=== PATIENT | female | born 1960 | race Caucasian/White ===

== ENCOUNTER 2020-01-06 08:16 | Emergency (ER) | payer OTHER, SELFPAY ==
[2020-01-06 08:22] VITALS: BP 128/59; PULSE 81; RESP 18; TEMP 37; O2SAT 98
--- NOTE | 2020-01-06 08:37 | ED.URI ---
HPI - URI/Sore Throat General Chief Complaint: Upper Respiratory Infection Stated Complaint: nausea chills sore throat Time Seen by Provider: 01/06/20 08:37 Source: patient History of Present Illness HPI Narrative: Patient presents with with bilateral cramping to her legs. Patient states she recently was on a cabbage soup diet causing diarrhea over the past week. Patient states she is discontinued the diet yesterday. Patient states she has had cramping to both lower extremities and to her feet. Patient states she did get new shoes which helped her feet tremendously. Patient denies any fever no cough no body aches no concern for influenza or strep throat today. Patient requests excuse for work and states she will follow-up with her primary care provider for lab work and further evaluation. Related Data Home Medications Medication Instructions Recorded Confirmed lisinopril 20 mg PO DAILY 12/01/19 12/01/19 lisinopril 20 mg PO DAILY 01/06/20 01/06/20 Allergies Allergy/AdvReac Type Severity Reaction Status Date / Time No Known Allergies Allergy Unknown Verified 12/01/19 09:14 Review of Systems Review of Systems: Narrative: CONSTITUTIONAL: Denies fever, chills, or sweats. EYES: Denies visual changes, redness, or discharge. ENT: Denies rhinorrhea, congestion, sore throat, or otalgia. CARDIOVASCULAR: Denies chest pain, palpitations, or edema. RESPIRATORY: Denies cough or dyspnea. GASTROINTESTINAL: Denies abdominal pain, nausea, vomiting, or diarrhea. GENITOURINARY: Denies dysuria or hematuria. SKIN: Denies rash or itching. MUSCULOSKELETAL: Denies back pain, joint pain, or myalgia. Bilateral lower extremity muscle aches no edema NEUROLOGIC: Denies headache, numbness, or weakness. PSYCHIATRIC: Denies anxiety or depression. PMFSH Past Medical History Medical History Hypertension Social History Social History Gender identity (if verbalized by the patient): Female Comments At time of signature, agree with nursing past medical, surgical, social and family history. There is no relevant family history pertinent to the presenting complaint Exam Narrative: Exam Narrative: GENERAL: Well-appearing, well-nourished, and in no acute distress. HEAD: Normocephalic, atraumatic. EYES: PERRLA and EOMI. ENT: Nares clear, no rhinorrhea or epistaxis. Mucous membranes moist. NECK: Supple. CHEST: Clear to auscultation. No respiratory distress. HEART: Regular rate and rhythm. No murmur heard. Normal peripheral pulses. ABDOMEN: Soft, nontender, nondistended, normal active bowel sounds. EXTREMITIES: Normal range of motion. No edema. SKIN: Warm, dry, no rash. NEURO: No focal deficits. Alert and oriented x3. Ryan Coma Scale Eye Opening: Spontaneous 4 Odilon Coma Scale Motor: Obeys Commands 6 Ryan Coma Scale Verbal: Oriented 5 Odilon Coma Scale Total 15 Discussed with pain need to not Course Vital Signs Vital signs: Vital Signs Temperature 37.0 C 01/06/20 08:22 Pulse Rate 81 01/06/20 08:22 Respiratory Rate 18 01/06/20 08:22 Blood Pressure 128/59 L 01/06/20 08:22 Pulse Oximetry 98 01/06/20 08:22 Temperature 37.0 C 01/06/20 08:22 Pulse Rate 81 01/06/20 08:22 Respiratory Rate 18 01/06/20 08:22 Blood Pressure 128/59 L 01/06/20 08:22 Pulse Oximetry 98 01/06/20 08:22 Addressed elevated BP today. Today's blood pressure higher than recommended range. Discussed importance of follow -up with PCP and possible exterminator helper effects/cardiovascular events related to HTN. Currently patient denies headache, dizziness, vision changes, CP or shortness of breath. Discussed with patient need to avoid Dyllan diets. To eat a well-balanced diet high in potassium. Discussed red flags and when to go to ER. Discussed need for patient to call Dr. Chahal's office today for follow-up appointment and possible lab work
== END 2020-01-06 08:47 | disposition home or self-care (01) ==
PROVIDERS: Emergency Provider Nurse Practitioner Family
DX: B34.9 Viral infection, unspecified (principal); I10 Essential (primary) hypertension
CPT/HCPCS: 99213; G0463

== ENCOUNTER 2020-09-08 08:35 | Emergency (ER) | payer OTHER, SELFPAY ==
[2020-09-08 08:40] VITALS: BP 143/69; PULSE 90; RESP 16; TEMP 36.4; O2SAT 98
--- NOTE | 2020-09-08 08:47 | ED.URI ---
HPI - URI/Sore Throat General Chief Complaint: Unspecified Stated Complaint: cough/sore throa/nasal congestion Time Seen by Provider: 09/08/20 08:48 Source: patient and RN notes reviewed Mode of arrival: ambulatory Limitations: no limitations History of Present Illness HPI Narrative: 59-year-old female presents with concern for nasal congestion, rhinorrhea, mild sore throat, occasional cough, itchy, watery eyes. Reports several days of symptoms, denies any intervention for her symptoms. MD elicited complaint: nasal congestion Related Data Home Medications Medication Instructions Recorded Confirmed amlodipine 5 mg PO DAILY 09/08/20 09/08/20 lisinopril 20 mg PO DAILY 09/08/20 09/08/20 pantoprazole 40 mg PO QAM 09/08/20 09/08/20 paroxetine HCl 10 mg PO QAM 09/08/20 09/08/20 Allergies Allergy/AdvReac Type Severity Reaction Status Date / Time No Known Allergies Allergy Unknown Verified 09/08/20 08:47 Review of Systems Review of Systems: Narrative: CONSTITUTIONAL: Denies malaise, chills, sweats, or fever. EYES: Denies visual changes, redness, or discharge. ENT: Reports rhinorrhea, congestion, sore throat. Denies sinus pain, otalgia. CARDIOVASCULAR: Denies chest pain, palpitations, or edema. RESPIRATORY: Reports cough. Denies dyspnea. GASTROINTESTINAL: Denies abdominal pain, nausea, vomiting, diarrhea SKIN: Denies rash or itching. MUSCULOSKELETAL: Denies myalgia. NEUROLOGIC: Denies headache. All systems reviewed & are unremarkable except as noted in HPI and below PMFSH Past Medical History Medical History (Updated 09/08/20 @ 08:55 by Macey Jimenez NP) Hypertension Social History Social History Gender identity (if verbalized by the patient): Female Comments At time of signature, agree with nursing past medical, surgical, social and family history. There is no relevant family history pertinent to the presenting complaint Exam Narrative: Exam Narrative: GENERAL: Well-appearing, well-nourished, and in no acute distress. HEAD: Normocephalic EYES: PERRLA, conjunctivae clear ENT: Nares clear, turbinates erythematous, clear discharge. Mucous membranes moist. TM pearly kaur with sharp light reflex bilaterally; no tragal tenderness. Oropharynx not erythematous without lesions. Tonsils not enlarged and without exudate, no drooling, no hoarseness, no trismus, uvula midline. NECK: Supple. No lymphadenopathy CHEST: Clear to auscultation, breath sounds equal. No wheezing, rhonchi, rales, or stridor. No respiratory distress, speaks in full sentences. HEART: Regular rate and rhythm. No murmur heard. SKIN: Warm, dry, no rash. NEURO: Alert and oriented x3. PSYCH: Normal mood and affect Course Course Emergency Course: Patient is aware of diagnosis, understands and agrees to treatment plan. Anticipatory guidance given. Patient agrees to follow-up as directed and is aware of reasons to seek care at the emergency department. Portions of this record may have been created with voice recognition software Vital Signs Vital signs: Vital Signs Temperature 97.6 F 09/08/20 08:40 Pulse Rate 90 09/08/20 08:40 Respiratory Rate 16 09/08/20 08:40 Blood Pressure 143/69 H 09/08/20 08:40 Pulse Oximetry 98 09/08/20 08:40 Temperature 97.6 F 09/08/20 08:53 Pulse Rate 90 09/08/20 08:53 Respiratory Rate 16 09/08/20 08:53 Blood Pressure 143/69 H 09/08/20 08:53 Pulse Oximetry 98 09/08/20 08:53 Reviewed. MDM - URI/Sore Throat MDM Narrative Medical decision making narrative: Differential diagnosis considered: Carbajal virus, strep pharyngitis, allergic rhinitis, upper respiratory tract infection, sinusitis, rhinosinusitis, nasopharyngitis. viral pharyngitis, otitis media, otitis externa, pneumonia, bronchitis, viral cough syndrome, viral syndrome, and influenza. Exam findings show no acute concerns or changes; patient is non-toxic appearing and is in no distress.
[2020-09-08 08:53] VITALS: BP 143/69; PULSE 90; RESP 16; TEMP 36.4; O2SAT 98
== END 2020-09-08 09:07 | disposition home or self-care (01) ==
PROVIDERS: Emergency Provider Nurse Practitioner; PCP Internal Medicine Infectious Disease
DX: J30.89 Other allergic rhinitis (principal); I10 Essential (primary) hypertension
CPT/HCPCS: 99213; G0463

== ENCOUNTER 2020-10-07 08:22 | Emergency (ER) | payer OTHER, SELFPAY ==
[2020-10-07 08:32] VITALS: BP 155/75; PULSE 77; RESP 20; TEMP 36.7; O2SAT 98
--- NOTE | 2020-10-07 08:36 | ED.GENADULT ---
HPI - General Adult General Chief complaint: Upper Respiratory Infection Stated complaint: URI Time Seen by Provider: 10/07/20 08:36 Source: patient Mode of arrival: ambulatory Limitations: no limitations History of Present Illness HPI narrative: 59-year-old female patient presents to the [facility] with complaints of cold symptoms and left ear pain for the past week. Patient states she has had these congestion type symptoms for the past month. Patient was seen here about a month ago was given some Zyrtec and some cough medication. Patient states the cough medication did help but continues to have complaints of the nasal congestion. Patient denies any fevers, body aches or chills. Denies any chest pain or shortness of breath. Patient is an active smoker. Related Data Home Medications Medication Instructions Recorded Confirmed amlodipine 5 mg PO DAILY 09/08/20 10/07/20 lisinopril 20 mg PO DAILY 09/08/20 10/07/20 pantoprazole 40 mg PO QAM 09/08/20 10/07/20 paroxetine HCl 10 mg PO QAM 09/08/20 10/07/20 Allergies Allergy/AdvReac Type Severity Reaction Status Date / Time No Known Allergies Allergy Unknown Verified 10/07/20 08:42 Review of Systems Review of Systems: Narrative: CONSTITUTIONAL: Denies fever, chills, or sweats. EYES: Denies visual changes, redness, or discharge. ENT: Denies rhinorrhea, positive nasal congestion, denies sore throat, positive left otalgia. CARDIOVASCULAR: Denies chest pain, palpitations, or edema. RESPIRATORY: Positive cough, denies dyspnea. GASTROINTESTINAL: Denies abdominal pain, nausea, vomiting, or diarrhea. GENITOURINARY: Denies dysuria or hematuria. SKIN: Denies rash or itching. MUSCULOSKELETAL: Denies back pain, joint pain, or myalgia. NEUROLOGIC: Denies headache, numbness, or weakness. PSYCHIATRIC: Denies anxiety or depression. [facility] Past Medical History Medical History (Updated 10/07/20 @ 08:54 by WILFREDO Gardner) Bronchitis Hypertension Postmenopausal Ulcer Surgical History Surgical History (Updated 10/07/20 @ 08:38 by WILFREDO Gardner) History of Hx of tonsillectomy Social History Social History (Reviewed 10/07/20 @ 08:36 by NORBERT Gardner Gender identity (if verbalized by the patient): Female Comments At the time of my signature I agree with nursing past medical history, surgical, social, and family history. There is no relevant family history pertinent to the presenting complaint. Exam Narrative: Exam Narrative: GENERAL: Well-appearing, well-nourished, and in no acute distress. HEAD: Normocephalic, atraumatic. EYES: PERRLA and EOMI. ENT: Nares with erythema and edema noted bilaterally with the left nare swollen shut, no rhinorrhea or epistaxis. Mucous membranes moist. Posterior pharynx with slight erythema but no tonsil enlargement, no exudates or lesions present. The left TM does appear very cloudy does appear to have some fluid behind it. The right TM is clear with no erythema or foreign bodies in the canal. NECK: Supple. No lymphadenopathy CHEST: Clear to auscultation. No respiratory distress. Patient able talk clear complete sentences. No tripoding noted. HEART: Regular rate and rhythm. No murmur heard. Normal peripheral pulses. ABDOMEN: Soft, nontender, nondistended, normal active bowel sounds. EXTREMITIES: Normal range of motion. No edema. SKIN: Warm, dry, no rash. NEURO: No focal deficits. Alert and oriented x3. Course Vital Signs Vital signs: Vital Signs Temperature 36.7 C 10/07/20 08:32 Pulse Rate 77 10/07/20 08:32 Respiratory Rate 20 10/07/20 08:32 Blood Pressure 155/75 H 10/07/20 08:32 Pulse Oximetry 98 10/07/20 08:32 Temperature 36.7 C 10/07/20 08:32 Pulse Rate 77 10/07/20 08:32 Respiratory Rate 20 10/07/20 08:32 Blood Pressure 155/75 H 10/07/20 08:32 Pulse Oximetry 98 10/07/20 08:32 Vital signs reviewed. The patient has been informed that they may have pre-hypertension
== END 2020-10-07 09:00 | disposition home or self-care (01) ==
PROVIDERS: Emergency Provider Nurse Practitioner Family; PCP Internal Medicine Infectious Disease
DX: H66.92 Otitis media, unspecified, left ear (principal); H73.892 Other specified disorders of tympanic membrane, left ear; J34.89 Other specified disorders of nose and nasal sinuses; I10 Essential (primary) hypertension
CPT/HCPCS: 99213; G0463

== ENCOUNTER 2021-05-24 11:20 | Emergency (ER) | payer OTHER, SELFPAY ==
[2021-05-24 11:29] VITALS: BP 131/70; PULSE 91; RESP 20; TEMP 37.2; O2SAT 97
--- NOTE | 2021-05-24 11:40 | ED.SKABFB ---
HPI - Skin/Abscess/Foreign Bdy General Chief complaint: Skin/Abscess/Foreign Body Stated complaint: Rash in Scalp Time Seen by Provider: 05/24/21 11:35 Source: patient and RN notes reviewed Mode of arrival: ambulatory Limitations: no limitations History of Present Illness HPI narrative: Patient presents today requesting a check for head lice. Earlier today, her mother was seen at [facility] and diagnosed with head lice. Patient states she has felt her scalp has been itchy recently, but she is unsure if this is due to dandruff or her hair gel, or head lice. complaint: other (Possible head lice) Related Data Home Medications Medication Instructions Recorded Confirmed amlodipine 5 mg PO DAILY 09/08/20 05/24/21 lisinopril 20 mg PO DAILY 09/08/20 05/24/21 pantoprazole 40 mg PO QAM 09/08/20 05/24/21 paroxetine HCl 10 mg PO QAM 09/08/20 05/24/21 Allergies Allergy/AdvReac Type Severity Reaction Status Date / Time No Known Allergies Allergy Unknown Verified 05/24/21 11:39 Review of Systems Review of Systems: Narrative: CONSTITUTIONAL: Denies body aches, fever, chills, or sweats. EYES: Denies visual changes, redness, or discharge. ENT: Denies rhinorrhea, congestion, sore throat, or otalgia. CARDIOVASCULAR: Denies chest pain, palpitations, or edema. RESPIRATORY: Denies cough or dyspnea. GASTROINTESTINAL: Denies abdominal pain, nausea, vomiting, or diarrhea. GENITOURINARY: Denies dysuria or hematuria. SKIN: Denies rash, or wounds.+ Itchy scalp MUSCULOSKELETAL: Denies back pain, joint pain, or myalgia. NEUROLOGIC: Denies headache, numbness, tingling, or weakness. PSYCH: Denies depression or anxiety. [facility] Past Medical History Medical History Bronchitis Hypertension Postmenopausal Ulcer Surgical History Surgical History History of Hx of tonsillectomy Social History Social History Gender identity (if verbalized by the patient): Female Comments At time of signature, I have reviewed and agree with nursing past medical, surgical, social and family history unless otherwise noted. Please see nursing chart for further information. There is no relevant family history pertinent to the presenting complaint Exam Narrative: Exam Narrative: GENERAL: Well-appearing, well-nourished, and in no acute distress. HEAD: Normocephalic, atraumatic. EYES: EOMI. No redness or drainage. Conjunctivae normal. ENT: Mucous membranes pink and moist. NECK: Normal AROM. CHEST: No respiratory distress. EXTREMITIES: Normal range of motion. No edema. SKIN: Warm, dry, no rash. Capillary refill normal. Normal skin turgor. Scalp normal without evidence of head lice or eggs. NEURO: No focal deficits. Alert and oriented x3. Gait steady. PSYCH: Normal affect. No signs of depression or anxiety. Course Vital Signs Vital signs: Vital Signs Temperature 99.0 F 05/24/21 11:29 Pulse Rate 91 05/24/21 11:29 Respiratory Rate 20 05/24/21 11:29 Blood Pressure 131/70 05/24/21 11:29 Pulse Oximetry 97 05/24/21 11:29 Temperature 99.0 F 05/24/21 11:29 Pulse Rate 91 05/24/21 11:29 Respiratory Rate 20 05/24/21 11:29 Blood Pressure 131/70 05/24/21 11:29 Pulse Oximetry 97 05/24/21 11:29 Reviewed. Pt has been instructed to follow up with her PCP regarding her elevated blood pressure today. MDM - Skin/Abscess/Foreign Bdy Differential Diagnosis Differential diagnosis: Likely urticaria, eczema, impetigo and other (Seborrheic dermatitis, head lice) Critical Care Time Critical Care Time Critical Care Time: No Discharge Plan Discharge Clinical Impression: Worried well Patient Disposition: Home, Self-Care Condition: Stable Additional Instructions: No evidence of lice was noted today. Your blood pressure was
== END 2021-05-24 11:45 | disposition home or self-care (01) ==
PROVIDERS: Emergency Provider Nurse Practitioner; PCP Internal Medicine Infectious Disease
DX: Z03.89 Encounter for observation for other suspected diseases and conditions ruled out (principal); I10 Essential (primary) hypertension
CPT/HCPCS: 99211; G0463

== ENCOUNTER 2021-08-23 08:34 | Emergency (ER) | payer OTHER, SELFPAY ==
[2021-08-23 08:42] VITALS: BP 119/59; PULSE 93; RESP 20; TEMP 36.8; O2SAT 99
--- NOTE | 2021-08-23 09:17 | ED.NAVMDI ---
HPI - Nausea/Vomiting/Diarrhea General Chief complaint: Nausea/Vomiting/Diarrhea Stated complaint: Nausea/Chills Time Seen by Provider: 08/23/21 09:18 Source: patient and RN notes reviewed Mode of arrival: ambulatory Limitations: no limitations History of Present Illness HPI Narrative: 60-year-old female presents concern for 5-day history of nausea, chills, malaise, fatigue. Reports a few episodes of dry heaving, denies consistent vomiting. Denies diarrhea or abdominal pain. Reports rhinorrhea. Denies cough, shortness of breath, measured temperature, sweats. MD elicited complaint: vomiting Related Data Home Medications Medication Instructions Recorded Confirmed amlodipine 5 mg PO DAILY 09/08/20 05/24/21 lisinopril 20 mg PO DAILY 09/08/20 05/24/21 pantoprazole 40 mg PO QAM 09/08/20 05/24/21 paroxetine HCl 10 mg PO QAM 09/08/20 05/24/21 Allergies Allergy/AdvReac Type Severity Reaction Status Date / Time No Known Allergies Allergy Unknown Verified 08/23/21 09:08 Review of Systems Review of Systems: CONSTITUTIONAL: Reports malaise, chills, fatigue. Denies sweats, or fever. ENT: Reports rhinorrhea. Denies congestion, sinus pain, otalgia or sore throat. CARDIOVASCULAR: Denies chest pain, palpitations, or edema. RESPIRATORY: Denies cough or dyspnea. GASTROINTESTINAL: Denies abdominal pain, vomiting, diarrhea. Reports nausea and dry heaving GENITOURINARY: Denies dysuria or hematuria. SKIN: Denies rash or itching. MUSCULOSKELETAL: Denies myalgia. NEUROLOGIC: Denies numbness, weakness, or headache. All systems reviewed & are unremarkable except as noted in HPI and below PMFSH Past Medical History Medical History Bronchitis Hypertension Postmenopausal Ulcer Surgical History Surgical History History of Hx of tonsillectomy Social History Social History Gender identity (if verbalized by the patient): Female Comments At time of signature, agree with nursing past medical, surgical, social and family history. There is no relevant family history pertinent to the presenting complaint Exam Narrative: GENERAL: Well-appearing, well-nourished, and in no acute distress. HEAD: Normocephalic, atraumatic. EYES: PERRLA, sclera clear ENT: Nares clear. Mucous membranes moist. TM pearly kaur with sharp light reflex bilaterally; no tragal tenderness. Oropharynx without erythema or lesions. Tonsils not enlarged and without exudate. NECK: Supple. CHEST: No respiratory distress. Clear to auscultation. No bony deformities, no asymmetry. Speaks in full sentences. HEART: Regular rate and rhythm. ABDOMEN: Soft, nontender, nondistended, normal active bowel sounds, no palpable masses. SKIN: Warm, dry, no visible rash. NEURO: Alert and oriented x3. PSYCH: Normal mood and affect Course Course Emergency Course: Patient is aware of diagnosis, understands and agrees to treatment plan. Anticipatory guidance given. Patient agrees to follow-up as directed and is aware of reasons to seek care at the emergency department. Portions of this record may have been created with voice recognition software Vital Signs Vital signs: Vital Signs Temperature 98.2 F 08/23/21 08:42 Pulse Rate 93 08/23/21 08:42 Respiratory Rate 20 08/23/21 08:42 Blood Pressure 119/59 L 08/23/21 08:42 Pulse Oximetry 99 08/23/21 08:42 Temperature 98.2 F 08/23/21 08:42 Pulse Rate 93 08/23/21 08:42 Respiratory Rate 20 08/23/21 08:42 Blood Pressure 119/59 L 08/23/21 08:42 Pulse Oximetry 99 08/23/21 08:42 Reviewed. MDM - Nausea/Vomiting/Diarrhea MDM Narrative Medical decision making narrative: Exam findings show no acute concerns or changes; patient is non-toxic appearing and is in no distress. Patient is appropriate for outpatient treatment a
[2021-08-24 19:26] LABS: SARS-CoV-2 RNA PCR Negative
== END 2021-08-23 09:47 | disposition home or self-care (01) ==
PROVIDERS: Emergency Provider Nurse Practitioner; PCP Internal Medicine Infectious Disease
DX: R11.0 Nausea (principal); Z20.822 Contact with and (suspected) exposure to COVID-19; I10 Essential (primary) hypertension
CPT/HCPCS: 87426; 99213; C9803; G0463; U0003; U0005

== ENCOUNTER 2022-03-18 08:31 | Emergency (ER) | payer OTHER, SELFPAY ==
[2022-03-18 08:37] VITALS: BP 133/86; PULSE 88; RESP 16; TEMP 36.5; O2SAT 99
--- NOTE | 2022-03-18 08:38 | ED.FEMALEGU ---
HPI - Female Genitourinary General Chief complaint: BULL [employer]IDDLE [employer]ER Stated complaint: Vaginal Issue Time Seen by Provider: 03/18/22 08:40 Source: patient and RN notes reviewed Mode of arrival: ambulatory Limitations: no limitations History of Present Illness HPI Narrative: 61-year-old female presents concern for vaginal itching and small amount of white discharge. She reports 1 week history of symptoms. Reports she used Monistat that ease the symptoms but did not relieve the symptoms. She denies dysuria, urgency frequency, vaginal bleeding, abdominal pain, nausea, vomiting, fever. She denies any concern for STD. She denies any rash or lesions. She reports she has had yeast infections in the past on the symptoms are similar MD elicited complaint: genital itching Related Data Home Medications Medication Instructions Recorded Confirmed amlodipine 5 mg PO DAILY 09/08/20 03/18/22 lisinopril 20 mg PO DAILY 09/08/20 03/18/22 pantoprazole 40 mg PO QAM 09/08/20 03/18/22 paroxetine HCl 10 mg PO QAM 09/08/20 03/18/22 phentermine 30 mg PO DAILY 03/18/22 03/18/22 Allergies Allergy/AdvReac Type Severity Reaction Status Date / Time No Known Allergies Allergy Unknown Verified 03/18/22 08:44 Review of Systems Review of Systems: CONSTITUTIONAL: Denies malaise, chills, sweats, or fever. CARDIOVASCULAR: Denies chest pain, palpitations, or edema. RESPIRATORY: Denies cough or dyspnea. GASTROINTESTINAL: Denies abdominal pain, nausea, vomiting, diarrhea GENITOURINARY: Reports dysuria, frequency, urgency, suprapubic pressure, vaginal bleeding. Denies flank pain or hematuria. Reports small amount of white discharge SKIN: Reports vaginal itching without rash or lesions MUSCULOSKELETAL: Denies back pain or myalgia. All systems reviewed & are unremarkable except as noted in HPI and below PMFSH Past Medical History Medical History Bronchitis Hypertension Postmenopausal Ulcer Surgical History Surgical History History of Hx of tonsillectomy Social History Social History Gender identity (if verbalized by the patient): Female Comments At time of signature, agree with nursing past medical, surgical, social and family history. There is no relevant family history pertinent to the presenting complaint Exam Narrative: GENERAL: Well-appearing, well-nourished, and in no acute distress. HEAD: Normocephalic. EYES: PERRLA, conjunctivae clear. NECK: Supple. No lymphadenopathy CHEST: Clear to auscultation. No respiratory distress. HEART: Regular rate and rhythm. SKIN: Warm, dry, no rash. NEURO: Alert and oriented x3. PSYCH: Normal mood and affect Course Course Emergency Course: Patient is aware of diagnosis, understands and agrees to treatment plan. Anticipatory guidance given. Patient agrees to follow-up as directed and is aware of reasons to seek care at the emergency department. Portions of this record may have been created with voice recognition software Level of Care: Express Care Visit Vital Signs Vital signs: Reviewed. MDM - Female Genitourinary MDM Narrative Medical decision making narrative: Exam findings and UA show no acute concerns or changes; patient is non-toxic appearing and is in no distress. Patient is appropriate for outpatient treatment and follow-up. Differential Diagnosis Differential diagnosis: Likely urinary tract infection and cystitis Critical Care Time Critical Care Time Critical Care Time: No Discharge Plan Discharge Clinical Impression: Vaginal itching Patient Disposition: Home, Self-Care Condition: Stable Instructions: Yeast Infection (ED) Additional Instructions: 1) Please follow-up with your primary care if you have any new symptoms or concerns. 2) If you have any urgent concerns please go to the ER. 3) P
== END 2022-03-18 08:50 | disposition home or self-care (01) ==
PROVIDERS: Emergency Provider Nurse Practitioner; PCP Internal Medicine Infectious Disease
DX: N89.8 Other specified noninflammatory disorders of vagina (principal); I10 Essential (primary) hypertension
CPT/HCPCS: 99213; G0463

== ENCOUNTER 2022-05-04 08:57 | Emergency (ER) | payer OTHER, SELFPAY ==
[2022-05-04 09:01] VITALS: BP 117/69; PULSE 93; RESP 16; TEMP 37.1; O2SAT 98
--- NOTE | 2022-05-04 09:03 | ED.EAR ---
HPI - Ear Problem General Chief complaint: Ear Stated complaint: ear pain and ulcer flair up Time Seen by Provider: 05/04/22 09:00 Source: patient and RN notes reviewed History of Present Illness HPI Narrative: Patient is a 61-year-old female who presents the urgent care with complaints of bilateral ear discomfort. Patient states that she feels like the right ear may be clogged and the left ear is causing intermittent pain. Patient states she has felt slightly off balance at times but believes it is due to possible decrease in blood pressure. Patient states that she has been on 2 blood pressure medications for some time but has recently started phentermine and has lost approximately 44 pounds. Patient states that since her weight loss she has had a decrease in blood pressure and her doctor has not adjusted her medications. Patient states she does have a primary care doctor appointment on Sunday and does plan to call him today due to her symptoms. Patient denies of any chest pain. Currently denies of any dizziness. Patient states she is also had issues with her ulcer flareup and has been following her PCP for the issue and increase her omeprazole for a few days. Patient states that she is currently having no abdominal pain. No other acute complaints. No acute distress noted. Patient aware of the plan of care. Some parts of this dictation were generated by voice recognition software and may contain typographical and/or grammatical inaccuracies. Related Data Home Medications Medication Instructions Recorded Confirmed amlodipine 5 mg tablet 5 mg PO DAILY 09/08/20 05/04/22 lisinopril 20 mg tablet 20 mg PO DAILY 09/08/20 05/04/22 pantoprazole 40 mg tablet,delayed 40 mg PO QAM 09/08/20 05/04/22 release phentermine 30 mg capsule 30 mg PO DAILY 03/18/22 05/04/22 Allergies Allergy/AdvReac Type Severity Reaction Status Date / Time No Known Allergies Allergy Unknown Verified 05/04/22 09:08 Review of Systems Review of Systems: CONSTITUTIONAL: Denies fever, chills, or sweats. EYES: Denies visual changes, redness, or discharge. ENT: Reports of intermittent otalgia with possibly right clogged ear CARDIOVASCULAR: Denies chest pain, palpitations, or edema. RESPIRATORY: Denies cough or dyspnea. GASTROINTESTINAL: Denies abdominal pain, nausea, vomiting, or diarrhea. GENITOURINARY: Denies dysuria or hematuria. SKIN: Denies rash or itching. MUSCULOSKELETAL: Denies back pain, joint pain, or myalgia. NEUROLOGIC: Denies headache, numbness, or weakness. Reports of intermittent dizziness All other systems reviewed are negative, except as documented in HPI. [facility]LY [facility] Past Medical History Medical History Bronchitis Hypertension Postmenopausal Ulcer Surgical History Surgical History History of Hx of tonsillectomy Social History Social History Gender identity (if verbalized by the patient): Female Comments At the time of my signature, I reviewed and agree with the nursing past medical, surgical, social, and family history. There is no relevant family history pertinent to the patient complaint. Exam Narrative: GENERAL: This is a well-nourished, well-developed patient, in no apparent distress. HEAD: normocephalic, atraumatic. EYES: PERRL. Sclera clear/white. Vision is grossly intact. EARS: External ears normal, auditory canals clear and without drainage, TMs normal without perforation. Hearing grossly intact. NOSE: External nose normal with no obvious nasal discharge, nares without redness, no rhinorrhea. THROAT: Mucous membranes moist, posterior pharynx clear. Moderate postnasal drainage NECK: Neck supple CARDIOVASCULAR: Regular rate and rhythm without murmurs, gallops, or rubs. RESPIRATORY: Clear to auscultation. Breath sounds equal bilate
[2022-05-04 09:08] VITALS: BP 117/69; PULSE 93; RESP 16; TEMP 37.1; O2SAT 98
[2022-05-04 09:17] VITALS: BP 108/70; BP 112/70; BP 119/62; PULSE 89; PULSE 90; PULSE 95
== END 2022-05-04 09:26 | disposition home or self-care (01) ==
PROVIDERS: Emergency Provider Nurse Practitioner Family; PCP Internal Medicine Infectious Disease
DX: R42 Dizziness and giddiness (principal); I10 Essential (primary) hypertension
CPT/HCPCS: 99213; G0463

== ENCOUNTER 2022-07-02 08:09 | Emergency (ER) | payer OTHER, SELFPAY ==
[2022-07-02 08:14] VITALS: BP 120/67; PULSE 95; RESP 20; TEMP 36.4; O2SAT 98
--- NOTE | 2022-07-02 08:20 | ED.GENADULT ---
HPI - General Adult General Chief complaint: Skin/Abscess/Foreign Body Stated complaint: Rash Time Seen by Provider: 07/02/22 08:20 Source: patient Mode of arrival: ambulatory Limitations: no limitations History of Present Illness HPI narrative: 61-year-old female patient presents to the [facility] with complaints of a rash to her torso, head and neck for the past week. Patient states that her was treated for poison [place] couple weeks ago. Patient denies any chest pain, shortness of breath or trouble breathing. Patient states that she has been using some [id number] head and shoulders shampoo for the scalp itching but denies any other [id number] use for itching. Patient states that itching and rash gets worse especially under her breasts when she is sweating. Patient states the rash can it comes and goes. Related Data Home Medications Medication Instructions Recorded Confirmed amlodipine 5 mg tablet 5 mg PO DAILY 09/08/20 07/02/22 lisinopril 20 mg tablet 20 mg PO DAILY 09/08/20 07/02/22 pantoprazole 40 mg tablet,delayed 40 mg PO QAM 09/08/20 07/02/22 release phentermine 30 mg capsule 30 mg PO DAILY 03/18/22 07/02/22 Allergies Allergy/AdvReac Type Severity Reaction Status Date / Time No Known Allergies Allergy Unknown Verified 07/02/22 08:27 Review of Systems Review of Systems: CONSTITUTIONAL: Denies fever, chills, or sweats. EYES: Denies visual changes, redness, or discharge. ENT: Denies rhinorrhea, congestion, sore throat, or otalgia. CARDIOVASCULAR: Denies chest pain, palpitations, or edema. RESPIRATORY: Denies cough or dyspnea. GASTROINTESTINAL: Denies abdominal pain, nausea, vomiting, or diarrhea. GENITOURINARY: Denies dysuria or hematuria. SKIN: Positive rash with itching to scalp, neck and torso MUSCULOSKELETAL: Denies back pain, joint pain, or myalgia. NEUROLOGIC: Denies headache, numbness, or weakness. PSYCHIATRIC: Denies anxiety or depression. [facility] Past Medical History Medical History Bronchitis Hypertension Postmenopausal Ulcer Surgical History Surgical History History of Hx of tonsillectomy Social History Social History Gender identity (if verbalized by the patient): Female Comments At the time of my signature I agree with nursing past medical history, surgical, social, and family history. There is no relevant family history pertinent to the presenting complaint. Exam Narrative: GENERAL: Well-appearing, well-nourished, and in no acute distress. HEAD: Normocephalic, atraumatic. Dandruff noted on exam. EYES: PERRLA and EOMI. ENT: Nares clear, no rhinorrhea or epistaxis. Mucous membranes moist. NECK: Supple. No lymphadenopathy CHEST: Clear to auscultation. No respiratory distress. HEART: Regular rate and rhythm. No murmur heard. Normal peripheral pulses. ABDOMEN: Soft, nontender, nondistended, normal active bowel sounds. EXTREMITIES: Normal range of motion. No edema. SKIN: Warm, dry, no obvious rash noted under breasts, neck or scalp area. Patient states that it is worse and the rash is much more noticeable when she is sweating. NEURO: No focal deficits. Alert and oriented x3. Course Course Level of Care: Express Care Visit Vital Signs Vital signs: Vital Signs Temperature 36.4 C L 07/02/22 08:14 Pulse Rate 95 07/02/22 08:14 Respiratory Rate 20 07/02/22 08:14 Blood Pressure 120/67 07/02/22 08:14 Pulse Oximetry 98 07/02/22 08:14 Oxygen Delivery Room Air 07/02/22 08:14 Temperature 36.4 C L 07/02/22 08:14 Pulse Rate 95 07/02/22 08:14 Respiratory Rate 20 07/02/22 08:14 Blood Pressure 120/67 07/02/22 08:14 Pulse Oximetry 98 07/02/22 08:14 Oxygen Delivery Room Air 07/02/22 08:14 Vital signs reviewed Medical Decision Making MDM Narrative Medical d
== END 2022-07-02 08:40 | disposition home or self-care (01) ==
PROVIDERS: Emergency Provider Nurse Practitioner Family; PCP Internal Medicine Infectious Disease
DX: L98.9 Disorder of the skin and subcutaneous tissue, unspecified (principal); L29.9 Pruritus, unspecified; I10 Essential (primary) hypertension
CPT/HCPCS: 99213; G0463

== ENCOUNTER 2024-04-09 08:07 | Emergency (ER) | payer MEDICARE, SELFPAY ==
[2024-04-09 08:22] VITALS: BP 96/49; PULSE 96; RESP 16; TEMP 37; O2SAT 95
[2024-04-09 08:28] VITALS: BP 96/49; PULSE 96; RESP 16; TEMP 37; O2SAT 95
--- NOTE | 2024-04-09 08:29 | ED.URI ---
HPI - URI/Sore Throat General Chief Complaint: Upper Respiratory Infection Stated Complaint: Cough Time Seen by Provider: 04/09/24 08:29 Source: patient Mode of arrival: ambulatory Limitations: no limitations History of Present Illness HPI Narrative: 63 yo F with hx of CVA, HTN presents with c/o cough, congestion, fatigue for 3 to 4 days. C/o coughing up brown sputum. Requesting covid testing. No SOB or chest pain. Not taking any OTC meds to treat symptoms. All systems reviewed and negative except as noted above. Related Data Home Medications Medication Instructions Recorded Confirmed amlodipine 5 mg tablet 5 mg PO DAILY 09/08/20 07/02/22 lisinopril 20 mg tablet 20 mg PO DAILY 09/08/20 07/02/22 pantoprazole 40 mg tablet,delayed 40 mg PO QAM 09/08/20 07/02/22 release phentermine 30 mg capsule 30 mg PO DAILY 03/18/22 07/02/22 Allergies Allergy/AdvReac Type Severity Reaction Status Date / Time No Known Allergies Allergy Unknown Verified 07/02/22 08:27 Review of Systems Review of Systems: CONSTITUTIONAL: Denies fever, chills, or sweats. Reports fatigue. EYES: Denies visual changes, redness, or discharge. ENT: Denies rhinorrhea, congestion, sore throat, or otalgia. CARDIOVASCULAR: Denies chest pain, palpitations, or edema. RESPIRATORY: Reports cough, coughing up brown sputum. Denies dyspnea. GASTROINTESTINAL: Denies abdominal pain, nausea, vomiting, or diarrhea. GENITOURINARY: Denies dysuria or hematuria. SKIN: Denies rash or itching. MUSCULOSKELETAL: Denies back pain, joint pain, or myalgia. NEUROLOGIC: Denies headache, numbness, or weakness. PSYCHIATRIC: Denies anxiety or depression. All other systems reviewed are negative, except as documented in HPI. COUNTS INCLUDE 234 BEDS AT THE [facility] Past Medical History Medical History Bronchitis Hypertension Postmenopausal Ulcer Surgical History Surgical History History of Hx of tonsillectomy Social History Social History Gender identity (if verbalized by the patient): Female Comments At time of signature, agree with nursing past medical, surgical, social and family history. There is no relevant family history pertinent to the presenting complaint. Exam Narrative: GENERAL: This is a well-nourished, well-developed patient, in no apparent distress. HEAD: normocephalic, atraumatic. EYES: PERRL. Sclera clear/white. Vision is grossly intact. EARS: External ears normal, auditory canals clear and without drainage, TMs normal without perforation. Hearing grossly intact. NOSE: External nose normal with no obvious nasal discharge, nares without redness, no rhinorrhea. THROAT: Mucous membranes moist, posterior pharynx clear. NECK: Neck supple, non-tender without lymphadenopathy, masses or thyromegaly. CARDIOVASCULAR: Regular rate and rhythm without murmurs, gallops, or rubs. RESPIRATORY: Decreased to lower lung tinajero otherwise clear. Breath sounds equal bilaterally. No wheezes, rales, or rhonchi. SKIN: warm, Dry, intact with no suspicious lesions or rash, good texture and turgor. NEURO: awake, alert, and oriented to person, place and time. There were no obvious focal neurologic abnormalities. EXTREMITIES: No joint tenderness, effusion, or edema noted. Course Course Level of Care: Express Care Visit Vital Signs Vital signs: Vital Signs Temperature 37.0 C 04/09/24 08:22 Pulse Rate 96 04/09/24 08:22 Respiratory Rate 16 04/09/24 08:22 Blood Pressure 96/49 L 04/09/24 08:22 Pulse Oximetry 95 04/09/24 08:22 Oxygen Delivery Room Air 04/09/24 08:22 Temperature 37.0 C 04/09/24 08:28 Pulse Rate 96 04/09/24 08:28 Respiratory Rate 16 04/09/24 08:28 Blood Pressure 96/49 L 04/09/24 08:28 Pulse Oximetry 95 04/09/24 08:28 Oxygen Delivery Room Air 04/09/24 08:28 Reviewed
== END 2024-04-09 08:46 | disposition home or self-care (01) ==
PROVIDERS: Emergency Provider Nurse Practitioner Family; PCP Internal Medicine Infectious Disease
DX: J22 Unspecified acute lower respiratory infection (principal); Z20.822 Contact with and (suspected) exposure to COVID-19; I10 Essential (primary) hypertension; Z86.73 Personal history of transient ischemic attack (TIA), and cerebral infarction without residual deficits
CPT/HCPCS: 87426; 87804; 99213; G0463